=== PATIENT | male | born 1960 | race Caucasian/White ===

== ENCOUNTER 2021-01-03 12:39 | Outpatient (CLI) | payer BC | END 2021-01-03 12:40 | disposition home or self-care (01) | LOC: BICULT 12:39 | PROVIDERS: ATTEND Ophthalmology | DX: H34.02 Transient retinal artery occlusion, left eye (principal); I65.29 Occlusion and stenosis of unspecified carotid artery | CPT/HCPCS: 93880 ==

== ENCOUNTER 2023-09-23 08:48 | Outpatient (CLI) | payer BC ==
[2023-09-23 09:40] LABS: #Eosinphils 0.1 10x3/uL (0.0-0.5); #Monocytes 0.4 10x3/uL (0.0-1.1); #Neutrophils 2.6 10x3/uL (1.5-8.4); %Basophils 0.5 % (0.0-2.0); %Eosinophils 2.5 % (0.0-6.0); %Lymphocytes 27.9 % (18.0-47.0); %Monocytes 10.1 % (0.0-10.0); %Neutrophils 58.8 % (40.0-75.0); Hematocrit 42.6 % (38.8-50.0); Hemoglobin 14.8 g/dL (13.5-17.5); Mean Corpuscular HGB CONC 34.7 g/dL (32.0-36.0); Mean Corpuscular Hemoglobin 29.2 pg (27.0-33.0); Mean Platelet Volume 9.2 fl (7.4-10.4); Platelet Count 206 10x3/uL (150-450); RBC Distribution Width 11.9 % (11.5-14.5); Red Blood Cell (RBC) Count 5.07 10x6/uL (4.32-5.72); White Blood Cell (WBC) Count 4.3 10x3/uL (3.5-10.5)
[2023-09-23 10:19] LABS: Anion Gap 12 mmol/L (10-20); BUN (Urea Nitrogen) 16 mg/dL (8.4-25.7); Calc. Creatinine Clearance 0 mL/min (70-130); Calcium 9.2 mg/dL (7.8-10.44); Carbon Dioxide 25 mmol/L (23-31); Chloride 108 mmol/L (98-107); Estimated GFR 77; Glucose 115 mg/dL (80-115); Potassium 4.2 mmol/L (3.5-5.1); Sodium 141 mmol/L (136-145)
== END 2023-09-23 08:49 | disposition home or self-care (01) ==
LOC: LABBT 08:48
PROVIDERS: ATTEND Specialist
DX: Z01.818 Encounter for other preprocedural examination (principal); K40.90 Unilateral inguinal hernia, without obstruction or gangrene, not specified as recurrent
CPT/HCPCS: 71046; 80048; 85025; 93005; 93010

== ENCOUNTER 2023-09-24 06:11 | Day surgery (SDC) | payer BC ==
[2023-09-23 09:20] VITALS: BMI 24.0
[2023-09-24] MEDS ORDERED: Ketorolac Tromethamine 30 MG (1 mL) VIAL ONE (06:27)
[2023-09-24] MEDS ORDERED: Acetaminophen 500 MG TAB ONE (06:27)
[2023-09-24] MEDS ORDERED: Sodium Chloride 0.9% 100 ML ONE (06:28)
[2023-09-24] MEDS ORDERED: CEFAZOLIN 2 GM VIAL ONE (06:28)
[2023-09-24] MEDS ORDERED: Midazolam HCl 2 mg/2 ml Vial ONE (06:31)
[2023-09-24] MEDS ORDERED: Lidocaine 1% PF 5 ML VIAL ONE (06:31)
[2023-09-24] MEDS ORDERED: PROPOFOL 20 ML ONE (06:31)
[2023-09-24] MEDS ORDERED: fentaNYL PF 100 MCG/2 ML SYRINGE ONE ×2 (06:31→07:46)
[2023-09-24] MEDS ORDERED: Dexamethasone 4 mg/ml Vial ONE (06:31)
[2023-09-24] MEDS ORDERED: Rocuronium Bromide 10 MG/ML (10ML VIAL) ONE (06:31)
[2023-09-24] MEDS ORDERED: SUGAMMADEX SODIUM 200 MG/2 ML VIAL ONE (06:31)
[2023-09-24] MEDS ORDERED: Ondansetron PF 4 MG/2 ML Vial ONE (06:31)
[2023-09-24] MEDS ORDERED: Bupivacaine 0.25% HCL 30 ML VIAL ONE (06:54)
[2023-09-24] MEDS ORDERED: EPINEPHrine 1 MG/ML VIAL ONE (06:54)
[2023-09-24] MEDS ORDERED: Glycopyrrolate 0.2 MG/ML 5 ML SYRINGE ONE (07:58)
[2023-09-24] MEDS ORDERED: PHENYLEPHRINE-NS 100 MCG/ML 10 ML SYRINGE ONE (08:00)
[2023-09-24] MEDS ORDERED: Meperidine HCl/PF 25 MG (1 mL) VIAL ONE (09:04)
[2023-09-24] MEDS ORDERED: fentaNYL 50 mcg/mL 1 mL Vial ONE (09:10)
== END 2023-09-24 12:10 | disposition home or self-care (01) ==
LOC: SDC 06:11
PROVIDERS: ATTEND Specialist
PROC: 0YQ64ZZ Repair Left Inguinal Region, Percutaneous Endoscopic Approach (ICD-10-PCS; principal; 2023-09-24)
DX: K40.90 Unilateral inguinal hernia, without obstruction or gangrene, not specified as recurrent (principal); I10 Essential (primary) hypertension; E78.00 Pure hypercholesterolemia, unspecified; F41.9 Anxiety disorder, unspecified; Z90.89 Acquired absence of other organs; Z79.899 Other long term (current) drug therapy; Z87.891 Personal history of nicotine dependence
CPT/HCPCS: 93005; 93010; A4314; C1781; J0171; J0665; J1100; J1885; J2175; J2250; J2405; J2704; J3010; J3490